=== PATIENT | male | born 1995 | race Caucasian/White ===

== ENCOUNTER 2022-11-30 16:47 | Emergency (ER) | payer MEDICARE, MEDICAID, SELFPAY ==
[2022-11-30 16:51] VITALS: BP 169/94; PULSE 59; RESP 20; TEMP 36.8; O2SAT 99; BMI 23.6
[2022-11-30 16:55] VITALS: PULSE 62; RESP 16
[2022-11-30 16:56] VITALS: BP 152/88; PULSE 87; RESP 17; O2SAT 98
[2022-11-30 16:57] VITALS: BP 152/88
[2022-11-30 17:00] VITALS: BP 150/97; PULSE 67; RESP 14; O2SAT 97
--- NOTE | 2022-11-30 17:01 | ECG_ITS ---
[facility] Test Date: 2022-11-30 Pat Name: ELISHA SANTANA Department: Room: - Gender: Male Human Resources Hr Representative: : 1995 Requested By: PEGGY LONG Order Number: [id number] Reading MD: PEGGY LONG Measurements Intervals Burns Rate: 66 P: 67 NH: 154 QRS: 77 QRSD: 92 T: 58 QT: 402 QTc: 416 Interpretive Statements 1100 Sinus rhythm 3114 Cannot rule out anterior myocardial infarction, age undetermined 9150 abnormal ECG No previous ECG available for comparison Electronically Signed On 12-01-2022 6:04:37 EDT by PEGGY LONG
--- NOTE | 2022-11-30 17:01 | XR_ITS ---
[address] [address] Patient Name: ELISHA SANTANA MRN: [id number] date: 1995 Sex: M Assigned Patient Location: ER Current Patient Location: ED.MAIN Accession/Order Number: [id number] Exam Date: 11/30/2022 17:00 Report Date: 11/30/2022 17:19 At the request of: ELAN URIOSTEGUI Procedure: XR chest 1V EXAM: XR chest 1V HISTORY: Chest pain. COMPARISON: None. TECHNIQUE: AP erect portable chest radiograph performed. FINDINGS: The trachea is midline. The heart size is normal. The cardiac mediastinal silhouette and hilar shadows are normal. The lung volumes are normal. The lung [place] are clear. There is no pneumothorax or osseous abnormality. IMPRESSION: Unremarkable AP erect portable chest radiograph. Electronically authenticated by: PATTI CAROLINA Date: 11/30/2022 17:19
--- NOTE | 2022-11-30 17:02 | ED.CHESTPAI1 ---
HPI - Chest Pain General Chief Complaint: Chest Pain Stated Complaint: CHEST PAIN Time Seen by Provider: 11/30/22 16:48 Source: patient Mode of arrival: walk-in Limitations: no limitations History of Present Illness HPI narrative: 26-year-old male presents for chest pain which she doesn't have right now. It's been intermittent for the last year. His had a baby for five days ago and the baby is still here until she weighs 4 pounds and then she can go home. No injury or trauma or fever. It's sharp and intermittent and doesn't radiate. No upper back pain or cough. Related Data Home Medications Medication Instructions Recorded Confirmed buprenorphine 8 mg-naloxone 2 mg 2 film sublingual DAILY 11/30/22 11/30/22 sublingual film Allergies Allergy/AdvReac Type Severity Reaction Status Date / Time No Known Drug Allergies Allergy Verified 11/30/22 16:54 Review of Systems ROS Narrative A ten point review of systems is negative except as noted above. PFSH PFSH Social History Smoking status: Heavy tobacco smoker Exam Narrative Exam Narrative: Nurses note and vital signs reviewed and patient is not hypoxic. General: The patient appears well and in no apparent distress. Patient is resting comfortably on cart. Skin: Warm, dry, no pallor noted. There is no rash noted. Head: Normocephalic, atraumatic Eye: Normal conjunctiva, no drainage Ears, Nose, Mouth, and Throat: oral mucosa is moist. Nares patent. Cardiovascular: Regular Rate and Rhythm; chest wall is not tender. No bruise rash or crepitus. Respiratory: Patient is in no distress, no accessory muscle use, lungs are clear to auscultation, no wheezing, rales or rhonchi Back: non-tender GI: soft and nontender Musculoskeletal: The patient has no evidence of calf tenderness, no pitting edema, symmetrical pulses noted bilaterally Neurological: A&O, normal speech Psychiatric: Cooperative Constitutional Vital Signs, click to edit/add: Last Vital Signs Temp 98.3 F 11/30/22 16:51 Pulse 86 11/30/22 17:25 Resp 20 11/30/22 17:25 BP 131/83 H 11/30/22 17:25 Pulse Ox 98 11/30/22 17:25 Course Vital Signs Vital signs: Vital Signs Temperature 98.3 F 11/30/22 16:51 Pulse Rate 59 L 11/30/22 16:51 Respiratory Rate 20 11/30/22 16:51 Blood Pressure 169/94 H 11/30/22 16:51 Pulse Oximetry 99 11/30/22 16:51 Temperature 98.3 F 11/30/22 16:51 Pulse Rate 86 11/30/22 17:25 Respiratory Rate 20 11/30/22 17:25 Blood Pressure 131/83 H 11/30/22 17:25 Pulse Oximetry 98 11/30/22 17:25 MDM - Chest Pain MDM Narrative Medical decision making narrative: EKG and chest x-ray both normal. He is reassured and discharged home. Treatment diagnosis and follow-up were discussed with the patient. Differential Diagnosis Differential diagnosis: Likely pneumothorax, atypical chest pain, costochondritis and chest pain ECG Data Attestation: I personally reviewed and interpreted this ECG as follows: (EKG on my interpretation shows normal sinus rhythm with no acute changes and a rate of 66) Discharge Plan Discharge Chief Complaint: Chest Pain Clinical Impression: Atypical chest pain Patient Disposition: Home, Self-Care Time of Disposition Decision: 17:29 Condition: Good Mode of Transportation: Private Vehicle Prescriptions / Home Meds: No Action buprenorphine-naloxone 8-2 mg film 2 film sublingual DAILY Instructions: Chest Pain (ED), Noncardiac Chest Pain (ED), Chest Wall Pain (ED) Stand Alone Forms: Portal Instructions Referrals: Physician,Non-Staff, MD [Primary Care Provider] - 1 week
[2022-11-30 17:25] VITALS: BP 131/83; PULSE 86; RESP 20; O2SAT 98
== END 2022-11-30 17:36 | disposition home or self-care (01) ==
PROVIDERS: Emergency Provider Emergency Medicine
DX: R07.89 Other chest pain (principal); F17.210 Nicotine dependence, cigarettes, uncomplicated
CPT/HCPCS: 71045; 93005; 99284

== ENCOUNTER 2024-06-07 09:45 | Emergency (ER) | payer MEDICARE, MEDICAID, SELFPAY ==
[2024-06-07 09:55] VITALS: BP 148/95; PULSE 68; TEMP 36.8; O2SAT 99; BMI 23.6
--- NOTE | 2024-06-07 09:58 | PC.NURSE ---
Patient reports urinary frequency and feeling full bladder
--- NOTE | 2024-06-07 10:23 | ED.MALEGU1 ---
HPI - Male Genitourinary General Chief complaint: Urogenital-Male Stated complaint: ABDOMINAL PAIN Time Seen by Provider: 06/07/24 09:58 Source: patient Mode of arrival: walk-in Limitations: no limitations History of Present Illness HPI Narrative: 28-year-old male presents for urinary symptoms. He is worried about having prostatitis. He says he has had issues with this before but his urologist dropped him because he missed an appointment. He has had no penile drainage and is not worried about an STD. He states his is and he has not had sex with anybody else. He is describing frequency of urination particularly at nighttime. Related Data Home Medications ?Medication ?Instructions ?Recorded ?Confirmed buprenorphine 8 mg-naloxone 2 mg 2 film sublingual DAILY 11/30/22 06/07/24 sublingual film Previous Rx's ?Medication ?Instructions ?Recorded ciprofloxacin HCl 500 mg tablet 500 mg PO Q12H #20 tabs 06/07/24 (Cipro) Allergies Allergy/AdvReac Type Severity Reaction Status Date / Time No Known Drug Allergies Allergy Verified 06/07/24 09:54 Review of Systems ROS Narrative A ten point review of systems is negative except as noted above. PFSH PFSH Social History Smoking status: Heavy tobacco smoker Little interest or pleasure in doing things: not at all Feeling down, depressed, or hopeless: not at all Exam Narrative Exam Narrative: Nurses note and vital signs reviewed and patient is not hypoxic. General: The patient appears well and in no apparent distress. Patient is resting comfortably on cart. Skin: Warm, dry, no pallor noted. There is no rash noted. Head: Normocephalic, atraumatic Eye: Normal conjunctiva, no drainage Ears, Nose, Mouth, and Throat: oral mucosa is moist. Nares patent. Cardiovascular: Regular Rate and Rhythm Respiratory: Patient is in no distress, no accessory muscle use, lungs are clear to auscultation, no wheezing, rales or rhonchi Back: non-tender GI: Soft and nontender, no distention : No inguinal adenopathy. No scrotal masses or tenderness or swelling. Musculoskeletal: The patient has no evidence of calf tenderness, no pitting edema, symmetrical pulses noted bilaterally Neurological: A&O, normal speech Psychiatric: Cooperative Constitutional Vital Signs, click to edit/add: Last Vital Signs Temp 98.3 F 06/07/24 09:55 Pulse 68 06/07/24 09:55 Resp 20 06/07/24 09:55 BP 148/95 H 06/07/24 09:55 Pulse Ox 99 06/07/24 09:55 O2 Del Method Room Air 06/07/24 09:55 Course Vital Signs Vital signs: Vital Signs Temperature 98.3 F 06/07/24 09:55 Pulse Rate 68 06/07/24 09:55 Respiratory Rate 20 06/07/24 09:55 Blood Pressure 148/95 H 06/07/24 09:55 Pulse Oximetry 99 06/07/24 09:55 Oxygen Delivery Method Room Air 06/07/24 09:55 Temperature 98.3 F 06/07/24 09:55 Pulse Rate 68 06/07/24 09:55 Respiratory Rate 20 06/07/24 09:55 Blood Pressure 148/95 H 06/07/24 09:55 Pulse Oximetry 99 06/07/24 09:55 Oxygen Delivery Method Room Air 06/07/24 09:55 MDM - Male Genitourinary MDM Narrative Medical decision making narrative: Urinalysis is negative. Gonorrhea and Chlamydia test are pending. He will be prescribed Cipro and was advised follow-up with the urologist. Treatment diagnosis and follow-up were discussed with the patient. Differential Diagnosis Differential diagnosis: Likely urinary tract infection, urethritis and prostatitis Lab Data Attestation: I reviewed the patient's lab results. Labs: Lab Results 06/07/24 Range/Units 10:27 Urine Color Lt. yellow (YELLOW) Urine Clarity Clear (CLEAR) Urine pH 7.0 (5.0-9.0) Ur Specific [place] 1.015 (1.005-1.025) Urine Protein Negative (NEG/TRACE) mg/dL Urine Glucose (UA) Negative (NEGATIVE) mg/dL Urine Ketones Negative (NEGATIVE) mg/dL Urine Occult Blood Negative (NEGATIVE) Urine Nitrite Negative (NEGATIVE) Urine Bilirubin Negative (NEGATIVE) Urine Urobilinogen 0.2 (0.2-1.0) EU/dL Ur Leukocyte Esterase Negative (NEGATIVE) Discharge Plan Discharge Chief Complaint: Urogenital-Male Clinical Impression: Urinary frequency Patient Disposition: Home, Self-Care Time of Disposition Decision: 10:59 Condition: Good Mode of Transportation: Private Vehicle Prescriptions / Home Meds: New ciprofloxacin HCl [Cipro] 500 mg tablet 500 mg PO Q12H Qty: 20 0RF No Action buprenorphine-naloxone 8-2 mg film 2 film sublingual DAILY Print Language: Pashto Instructions: Urinary Urgency and Frequency (DC) Referrals: Physician,Non-Staff, MD [Primary Care Provider] - 1 week
[2024-06-07 10:53] LABS: Bilirubin Urine NEGATIVE (NEGATIVE); Blood Urine NEGATIVE (NEGATIVE); Clarity Urine CLEAR (CLEAR); Color Urine LT. YELLOW (YELLOW); Glucose Urine UA NEGATIVE (NEGATIVE); Ketones Urine NEGATIVE (NEGATIVE); Leukocyte Esterase Urine NEGATIVE (NEGATIVE); Nitrite Urine NEGATIVE (NEGATIVE); Protein Urine NEGATIVE (NEG/TRACE); Specific Gravity Urine 1.015 (1.005-1.025); Urobilinogen Urine 0.2 EU/dL (0.2-1.0)
[2024-06-07 11:00] LABS: Bacteria Urine NONE SEEN #/HPF (NONE SEEN); Mucus Urine NONE SEEN (NONE SEEN); RBC Urine NONE SEEN #/HPF (0-2); Squamous Epithelial Cell Urine RARE #/LPF (NONE/RARE); WBC Urine NONE SEEN #/HPF (NONE SEEN)
[2024-06-08 22:07] LABS: Neisseria gonorrhoeae, NAA Negative (Negative)
== END 2024-06-07 11:06 | disposition home or self-care (01) ==
PROVIDERS: Emergency Provider Emergency Medicine
DX: R35.0 Frequency of micturition (principal); F17.200 Nicotine dependence, unspecified, uncomplicated
CPT/HCPCS: 81001; 87491; 87591; 99283

== ENCOUNTER 2024-12-08 18:20 | Emergency (ER) | payer MEDICARE, MEDICAID, SELFPAY ==
[2024-12-08 18:22] VITALS: BP 120/62; PULSE 58; TEMP 36.8; O2SAT 100; BMI 25.1
--- NOTE | 2024-12-08 18:28 | PC.NURSE ---
red raised rash to bilat lower legs, presents like bug bites and superficial abrasions. some have some scabs to the top and some appear to be opened by itching.
--- OUTSIDE RECORDS SUMMARY | 2024-12-08 18:35 | XMS_ITS | CCD ---
Author Organization [facility] Inform ion Partnership [facility] Care Team Providers Care Used Car Lot Attendant Name Role Phone JIMMIE MACKAY Admitting Unavailable JIMMIE MACKAY Attending Unavailable KYLAH BUCHANAN Primary Care Unavailable NONE, XXXX Primary Care Physician Unavailab Arnold Amos Attending Unavailable LEANA MARINO Admitting Unavailable LEANA MARINO Attending Unavailable Sue Khoury Attending Unavailable LEANA MARINO Attending Unavailable Arnold LEWIS Attending Unavailable LEANA MARINO Attending Unavailable LEANA MARINO Admitting Unavailable LEANA MARINO Attending Unavailable Medications Current Medications Medication Drug Class(es) Dates Sig (Normalized) Sig (Original) Amphetamine / Dextroamphetamine (1 source) Central Nervous System Stimulant Start: 07-31-2021 take 1 mg by mouth twice daily Adderall 30 mg oral tablet mg, tab(s), Oral, BID, Refill(s) 0 Start Date: 07/31/21 Status: Ordered amphetamine aspartate 7.5 mg / amphetamine sulfate 7.5 mg / dextroamphetamine saccharate 7.5 mg / dextroamphetamine sulfate 7.5 mg oral tablet (1 source) Central Nervous System Stimulant Start: 07-31-2021 take 1 mg by mouth twice daily Adderall 30 mg oral tablet mg, tab(s), Oral, BID, Refill(s) 0 Start Date: 07/31/21 Status: Ordered buprenorphine 8 mg / naloxone 2 mg sublingual film (6 sources) Partial Opioid Agonist, Opioid Antagonist Start: 07-31-2021 Suboxone 8 mg-2 mg sublingual film film, SubLingual, Daily, Refill(s) 0 Start Date: 07/31/21 Status: Ordered doxycycline hyclate 100 mg oral tablet (2 sources) Tetracycline-class Drug Start: 07-15-2023 End: 08-26-2023 take 1 tablet by mouth twice daily doxycycline hyclate 100 mg Tab 100 mg = 1 tab(s), Oral, BID, X 42 day(s), # 84 tab(s), Refills(s) 0, [id number], 178, cm, 07/15/23 10:42:00 EST, Height/Length Dosing, 70, kg, 07/15/23 10:42:00 EST, Weight Dosing Start Date: 07/15/23 Stop Date: 08/26/23 Status: Ordered naproxen 500 mg oral tablet (3 sources) Nonsteroidal Anti-inflammatory Drug Start: 07-15-2023 End: 07-29-2023 take 1 tablet by mouth twice daily at mealtime naproxen 500 mg Tab 500 mg = 1 tab(s), Oral, BID, Take with food., X 14 day(s), # 28 tab(s), Refills(s) 0, [id number], 178, cm, 07/15/23 10:42:00 EST, Height/Length Dosing, 70, kg, 07/15/23 10:42:00 EST, Weight Dosing Start Date: 07/15/23 Stop Date: 07/29/23 Status: Ordered Start: 05-22-2022 End: 06-05-2022 take 1 tablet by mouth twice daily at mealtime naproxen 500 mg Tab 500 mg = 1 tab(s), Oral, BID, Take with food., X 14 day(s), # 28 tab(s), Refills(s) 0, [id number], 178, cm, 05/22/22 11:36:00 EST, Height/Length Dosing, 70, kg, 05/22/22 11:36:00 EST, Weight Dosing Start Date: 05/22/22 Stop Date: 06/05/22 Status: Ordered sulfamethoxazole 800 mg / trimethoprim 160 mg oral tablet (1 source) Dihydrofolate Reductase Inhibitor Antibacterial, Sulfonamide Antimicrobial Start: 05-22-2022 End: 07-03-2022 Bactrim D.S. 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 Attention-deficit, conduct, and disruptive behavior disorders (7 sources) Adult attention deficit hyperactivity disorder 06-19-2021 Chronic Genitourinary symptoms and ill-defined conditions (20 sources) Retention of urine; Translations: [Retention of urine, unspecified] Onset: 09-25-2021 Episodic Hepatitis (7 sources) Viral hepatitis C 06-19-2021 Episodic Hyperplasia of prostate (13 sources) Benign prostatic hypertrophy with outflow obstruction 07-31-2021 Chronic Inflammatory conditions of male genital organs (10 sources) Prostatitis; Translations: [Inflammatory disease of prostate, unspecified] Onset: 09-25-2021 Episodic Other diseases of kidney and ureters (1 source) Urinary tract obstruction; Translations: [Other obstructive and reflux uropathy] Onset: 05-22-2022 Episodic Residual codes; unclassified (7 sources) At risk of sexually transmitted infection 06-19-2021 Episodic Substance-related disorders (20 sources) Opioid abuse; Translations: [Substance abuse] 06-19-2021 Chronic Comment on above: Added secondary to d ocumentation in Social History. Unclassified (6 sources) Finding of sensation of bladder 05-22-2022 Results Test Name Value Interpretation Reference Range Facil ity [facility] 02, 2023 ELISHA [place]ANA [address] [place] [address] : 1995 Dear Elisha, You missed your scheduled appointment on 11/02/23 at 12:45pm with Dr Sue Khoury MD, with [facility]. Please note our appointment slots fill quickly. When you fail to cancel or reschedule an appointment the office is unable to fill the appointment slot that was reserved for you. In the future, we ask that you call 24 hours in advance to cancel your appointment. Our current reminder system gives you the opportunity to cancel by responding to our reminder text, phone call or email. We did try to call you and reschedule but we were unable to leave a message on your phone. Please call [phone] option 3 to reschedule. Our goal is to provide convenient and quality care to all of our patients. We appreciate your consideration regarding any future cancellations. Sincerely, [facility] Provider Letteron 09-15-2023 Provider Letter September 15, 2023 [place] [address] : 1995 Dear Elisha , We have been trying to reach you with no success. We have a message for you. Please call our office upon receiving this letter. Also, at the time of your call, please provide us with your current information. Thank you for your prompt attention to this matter. Sincerely, [facility] [address], [place] [address] [facility] Chlam/GC/Trich,NAAon 024 C. trachomatis rRNA STEPHANIE+probe Ql (Unsp spec) Negative Invalid Interpretation Code Negative [facility] Comment on above: Performed By: #### 1 [id number] #### [facility] [address] [place] [address] N. gonorrhoeae rRNA STEPHANIE+probe Ql (Unsp spec) Negative Invalid Interpretation Code Negative [facility] Comment on above: Performed By: #### 1 [id number] #### [facility] [address] [place] [address] T. vaginalis rRNA STEPHANIE+probe Ql (Unsp spec) Negative Invalid Interpretation Code Negative [facility] Comment on above: Result Comment: Perf ormed at: =G [facility] [address] [place] [id number] MD Bobby Romo Performed By: #### 1 [id number] #### [facility] [address] [place] [address] Ambulatory Visit Summaryon 0 07-15-2023 Ambulatory Visit Summary ELISHA SANTANA :1995 Visit Date:07/15/2023 Ambulatory Visit Instructions Your Diagnosis Prostatitis Your Care Team Attending Physician - LEANA MARINO PA-C Primary Care Physician - NONE, XXXX This Is Your Medications List Contact prescribing physician if questions or concerns buprenorphine-naloxo ne (Suboxone 8 mg-2 mg sublingual film) Discharge Vitals Height 178 cm Height 70 in Weight 70.0 kg Weight 154 lb BMI 22.09 What to do next You Need to Schedule the Following Appointments Follow Up with LEANA MARINO PA-C, ANA When: Where: [address] [facility] [place] [address] Medications What How Much When Instructions Unchanged buprenorphine-naloxo ne (Suboxone 8 mg-2 mg sublingual film) Every day Contact prescribing physician if questions or concerns Allergies No Known Allergies Problems Ongoing - Any problem that you are currently receiving treatment for. Adult ADHD Anxiety and depression BPH with obstruction/lower urinary tract symptoms BPH with urinary obstruction Feeling of incomplete bladder emptying Hepatitis C Incomplete bladder emptying Nocturia Opioid abuse Possible exposure to STD Prostatitis Smoker Substance abuse Urinary frequency Urinary hesitancy Urinary urgency Patient Survey You may receive a survey via text or e-mail asking about your office visit. Please share your experience with us by completing your survey. We appreciate your feedback and thank you for choosing us for your care. [facility] Patient Educationon 07-15-19 Patient Education Infectious Disease Prostatitis Prostatitis is swelling or inflammation of the prostate gland, also called the prostate. This gland is about 1.5 inches wide and 1 inch high, and it is involved in making semen. The prostate is located below a man's bladder, in front of the rectum. There are four types of prostatitis: ? Chronic prostatitis (CP), also called chronic pelvic pain syndrome (CPPS). This is the most common type of prostatitis. It is associated with increased muscle tone in the area between the hip bones (pelvic area), around the prostate. This type is also known as a pelvic floor disorder. ? Chronic bacterial prostatitis. This type usually results from an acute bacterial infection in the prostate gland that keeps coming back or has not been treated properly. The symptoms are less severe than those caused by acute bacterial prostatitis, which lasts a shorter time. ? Asymptomatic inflammatory prostatitis. This type does not have symptoms and does not need treatment. This is diagnosed when tests are done for other disorders of the urinary tract or reproductive tract. ? Acute bacterial prostatitis. This type starts quickly and results from an acute bacterial infection in the prostate gland. It is usually associated with a bladder infection, high fever, and chills. This is the least common type of prostatitis. What are the causes? Bacterial prostatitis is caused by an infection from bacteria. Chronic nonbacterial prostatitis may be caused by: ? Factors related to the nervous system. This system includes thebrain, spinal cord, and nerves. ? An autoimmune response. This happens when the body's disease-fighting system attacks healthy tissue in the body by mistake. ? Psychological factors. These have to do with how the mind works. The causes of the other types of prostatitis are usually not known. What are the signs or symptoms? Symptoms of this condition depend on the type of prostatitis you have. Acute bacterial prostatitis Symptoms may include: ? Pain or burning during urination. ? Frequent and sudden urges to urinate. ? Trouble starting to urinate. ? Fever. ? Chills. ? Pain in your muscles or joints, lower back, or lower abdomen. Other types of prostatitis Symptoms may include: ? Sudden urges to urinate, or urinating often. ? Trouble starting to urinate. ? Weak urine stream. ? Dribbling after urination. ? Discharge coming from the penis. ? Pain in the testicles, the penis, or the tip of the penis. ? Pain in the area in front of the rectum and below the scrotum (perineum). ? Pain when ejaculating. How is this diagnosed? This condition may be diagnosed based on: ? A physical and medical exam. ? A digital rectal exam. For this, the health care provider may use a finger to feel the prostate. ? A urine test to check for bacteria. ? A semen sample or blood tests. ? Ultrasound. ? Urodynamic tests to check how your body handles urine. ? Cystoscopy to look inside your bladder or inside the part of your body that drains urine from the bladder (urethra). How is this treated? Treatment for this condition depends on the type of prostatitis. Treatment may involve: ? Medicines to relieve pain or inflammation, or to help relax your muscles. ? Physical therapy. ? Heat therapy. ? Biofeedback. These techniques help you control certain body functions. ? Relaxation exercises. ? Antibiotic medicine, if your condition is caused by bacteria. ? Sitz baths. These warm water baths help to relax your pelvic floor muscles, which helps to relieve pressure on the prostate. Follow these instructions at home: Medicines ? Take rfac-[id number]-[id number] and prescription medicines only as told by your health care provider. ? If you were prescribed an antibiotic medicine, take it as told by your health care provider. Do not stop using the antibiotic even if you start to feel better. Managing pain and swelling ? Take sitz baths as directed by your health care provider. For a sitz bath, sit in warm water that is deep enough to cover your hips and buttocks. ? If directed, apply heat to the affected area as often as told by your health care provider. Use the heat source that your health care provider recommends, such as a moist heat pack or a heating pad. ? Place a towel between your skin and the heat source. ? Leave the heat on for 20?30 minutes. ? Remove the heat if your skin turns bright red. This is especially important if you are unable to feel pain, heat, or cold. You may have a greater risk of getting burned. General instructions ? Do exercises as told by your health care provider, if you were prescribed physical therapy, biofeedback, or relaxation exercises. ? Keep all follow-up visits as told by your health care provider. This is important. Where to find more information ? [employer] [place] [employer] and [employer]estive and Kidney Diseases: (more content not included)... Normal [facility] Office/Clinic Noteon 07-15-2023 Urology Office/Clinic Note Chief Complaint Prostatitis symptoms HPI Staff Pt is here today due to prostatitis symptoms. Pt would like refill of Bactrim medication. PVR today 18ml. Previous DX: BPH w/LUTS, incomplete bladder emptying, nocturia, prostatitis, urinary frequency, urinary hesitancy, urinary urgency. Dysuria: some burning ending stream Incomplete bladder emptying: denies Hematuria: denies visible blood today, noticed blood a couple of months ago after intercourse Frequency: 10x a day Urgency: denies Nocturia: once a night Stream: hesitant stream, start stop stream Leaking: denies Post void dripping: sometimes Wearing pads/ Depends: denies Urge incontinence: denies Stress incontinence: denies Incontinence without Sensory Awareness: denies Abdominal pain: denies Flank pain: denies Sexual complaints: denies History of Present Illness staff HPI reviewed and agree. Tests Reviewed: Reviewed UA. Review of Systems PHQ Score Initial Depression Screen Score: 0 SCORE no fever, chills, malaise, myalgia. no rash/lesions. no chest pain, palpitations, or SOB. no abdominal pain, nausea, vomiting. no unilateral calf swelling, redness, pain Physical Exam Vitals & Measurements HT: 70 in HT: 178 cm WT: 70.0 kg WT: 154 lb BMI: 22.09 General: nontoxic, NAD Mouth: moist mucosa Lungs: normal respiratory effort Cardio: regular rate, good distal perfusion Abdomen: nondistended, no suprapubic distention or tenderness, no CVA tenderness Neurologic: Grossly normal Skin: No rashes or suspicious lesions Assessment/Plan 1. Prostatitis (N41.9: Inflammatory disease of prostate, unspecified) UA today negative for blood and infection. PVR 18 cc. Pt presents with similar sx as to the last time he had prostatitis in 04/2022. Was treated with Bactrim DS x 6 weeks recently, noticed improvement but not resolution of sx. Says last time he had prostatitis it required 2 rounds abx. discussed possible resistance to this Bactrim since he's had this several times now. Pt lifts heavy weights daily, not a candidate for fluoroquinolones. -Start Doxycycline 100 mg bid x 6 weeks. Rx sent to [facility]. -Start Naproxen 500 mg bid x 2 weeks. Take with food. Rx sent to [facility]. -Will send urine for GC-CT testing. call if abnl. Pt knows to call if his sx are not improved after med courses below otherwise f/u PRN. Follow-up With When Contact Information NED LEVINE, LEANA Barnes, URL [address] [place] [address] Additional Instructions: PRN Patient Education Prostatitis Documentation recorded by the scribvalentino Andre accurately reflects the services(s) I performed and decisions made by me. Authenticated by Leana Marino PA-C on 07/15/2023 16:08:04. I, Minna Andre, personally scribed for YUMIKO Osullivan on 07/15/2023 11:58:40. . Problem List/Past Medical History Ongoing Adult ADHD Anxiety and depression BPH with obstruction/lower urinary tract symptoms BPH with urinary obstruction Feeling of incomplete bladder emptying Hepatitis C Incomplete bladder emptying Nocturia Opioid abuse Possible exposure to STD Prostatitis Smoker Substance abuse Urinary frequency Urinary hesitancy Urinary urgency Historical No qualifying data Medications Suboxone 8 mg-2 mg sublingual film, SubLingual, Daily Allergies No Known Allergies Social History Substance Abuse Current, Marijuana, 06/19/2021 Tobacco 10 or more cigarettes (1/2 pack or more)/day in last 30 days, Smoker, current status unknown Tobacco Use:. Never Smokeless Tobacco Use:. Cigarettes, Yes, 07/15/2023 Family History Alcoholism: Mother and Father. Arthritis: Mother. Diabetes mellitus type 2: Sister. Drug addiction: Mother and Father. High blood pressure: Mother. High cholesterol: Mother. Kidney disease: Mother. Primary malignant neoplasm of lung: Mother. Stroke: Mother. Lab Results Ambulatory Point of Care Results Bilirubin Urine Dipstick: 1+ Small (07/15/23 10:37:00) Blood Urine Dipstick: Trace-intact (07/15/23 10:37:00) Glucose Urine Dipstick: Negative (07/15/23 10:37:00) Ketones Urine Dipstick: Negative (07/15/23 10:37:00) Leukocytes Urine Dipstick: Negative (07/15/23 10:37:00) Nitrite Urine Dipstick: Negative (07/15/23 10:37:00) Protein Urine Dipstick: Negative (07/15/23 10:37:00) Specific [place] Urine Dipstick: 1.025 (07/15/23 10:37:00) Urine Appearance Urine Dipstick: Clear (07/15/23 10:37:00) Urine Color Urine Dipstick: Dark yellow (07/15/23 10:37:00) Urobilinogen Urine Dipstick: Normal 0.2-1 EU/dl (07/15/23 10:37:00) pH Urine Dipstick: 6 (07/15/23 10:37:00) Normal [facility] Comment on above: Result Comment: Elec tronically Signed By: LEANA MARINO PA-C\.br\Date and Time Signed: 07/15/23 16:08 EST\.br\Electronically Co-Signed By: Minna Andre\.br\Date and Time Co-Signed: 07/15/23 11:59 EST Chlam/GC/Trich,NAAon 024 C. trachomatis rRNA STEPHANIE+probe Ql (Unsp spec) Negative Invalid Interpretation Code Negative [facility] Comment on above: Performed By: #### 1 [id number] #### [facility] [address] [place] [address] N. gonorrhoeae rRNA STEPHANIE+probe Ql (Unsp spec) Negative Invalid Interpretation Code Negative [facility] Comment on above: Performed By: #### 1 [id number] #### [facility] [address] [place] [address] T. vaginalis rRNA STEPHANIE+probe Ql (Unsp spec) Negative Invalid Interpretation Code Negative [facility] Comment on above: Result Comment: Perf ormed at: =G [address] [id number] MD Bobby Romo Performed By: #### 1 [id number] #### [facility] [address] [place] [address] Ambulatory Visit Summaryon 0 05-28-2023 Ambulatory Visit Summary ELISHA SANTANA :1995 Visit Date:05/26/2023 Ambulatory Visit Instructions Your Diagnosis BPH with obstruction/lower urinary tract symptoms Tests Performed Urnls Dip Stick Auto w/o Microscopy POC 37200 Your Care Team Attending Physician - LEANA MARINO PA-C Primary Care Physician - LEANA MARINO PA-C This Is Your Medications List amphetamine-dextroam phetamine (Adderall 30 mg oral tablet) buprenorphine-naloxo ne (Suboxone 8 mg-2 mg sublingual film) Medications What How Much When Instructions Unchanged amphetamine-dextroam phetamine (Adderall 30 mg oral tablet) 2 times a day Unchanged buprenorphine-naloxo ne (Suboxone 8 mg-2 mg sublingual film) Every day Test Results Urnls Dip Stick Auto w/o Microscopy POC 92258 (05/26/2023) Bilirubin Urine Dipstick - Negative Blood Urine Dipstick - Negative Glucose Urine Dipstick - Negative Ketones Urine Dipstick - Negative Leukocytes Urine Dipstick - Negative Nitrite Urine Dipstick - Negative Protein Urine Dipstick - Negative Specific [place] Urine Dipstick - 1.020 Urine Appearance Urine Dipstick - Clear Urine Color Urine Dipstick - Dark yellow Urobilinogen Urine Dipstick - Normal 0.2-1 EU/dl pH Urine Dipstick - 7 Allergies No Known Allergies Problems Ongoing - Any problem that you are currently receiving treatment for. Adult ADHD Anxiety and depression BPH with obstruction/lower urinary tract symptoms BPH with urinary obstruction Feeling of incomplete bladder emptying Hepatitis C Incomplete bladder emptying Nocturia Opioid abuse Possible exposure to STD Prostatitis Smoker Substance abuse Urinary frequency Urinary hesitancy Urinary urgency Patient Survey You may receive a survey via text or e-mail asking about your office visit. Please share your experience with us by completing your survey. We appreciate your feedback and thank you for choosing us for your care. Normal [facility] Vital Signs Date Time Vital Sign Value Performing Clinician Lala carreon 05-22-2022 11:34-0500 Blood Pressure Location LEANA MARINO [facility] 05-22-2022 11:34-0500 Diastolic blood pressure 73 mm[Hg] LEANA MARINO [facility] 05-22-2022 11:34-0500 Heart rate 57 /min LEANA MARINO [facility] 05-22-2022 11:34-0500 Systolic blood pressure 127 mm[Hg] LEANA MARINO [facility] Encounters Encounter Date Encounter Type Care Provider Facility Start: 03-02-2024 End: 03-02-2024 ambulatory Arnoldsaul LEWIS Facility:[facility] Start: 03-02-2024 End: 03-02-2024 Patient encounter procedure Arnold LEWIS [facility] Start: 11-02-2023 End: 11-02-2023 ambulatory Sue Khoury Facility: [place] Start: 11-02-2023 End: 11-02-2023 Patient encounter procedure Sue ReeseForrest Peng [facility] Start: 10-16-2023 End: 10-16-2023 ambulatory Arnoldsaul LEWIS Facility: [place] Start: 10-16-2023 End: 10-16-2023 Patient encounter procedure Arnold LEWIS [facility] Start: 07-15-2023 End: 07-15-2023 ambulatory LEANA Branes NED Facility[facility] Start: 07-15-2023 End: 07-15-2023 Lab Drop off LEANA Valentino NED [facility] Start: 07-15-2023 End: 07-15-2023 ambulatory LEANA E NED Facility:[facility] Start: 07-15-2023 End: 07-15-2023 Patient encounter procedure LEANA E NED [facility] Start: 05-26-2023 End: 05-26-2023 ambulatory LEANA E NED Facility:[facility] Start: 05-22-2022 End: 05-22-2022 Patient encounter procedure LEANA E NED [facility] Start: 09-25-2021 End: 09-25-2021 Patient encounter procedure LEANA MARINO [facility] Start: 02-17-2021 ambulatory JIMMIEJAYY [place] Chiang y:H1 Payers Date Payer Category Payer Medicare [id number] 2020 Medicaid [id number] 1995 Unknown [id number] 2.16.84 [id number] 1995 Unknown [id number] 2.16.8 [id number] 1995 Unknown [id number] 2.16.8 [id number] 1995 Unknown [id number] 2.16.8 [id number] 1995 Unknown [id number] 2.16.8 [id number] 1995 Unknown [id number] 2.16.8 [id number] 1995 Unknown [id number] 2.16.8 [id number] 1995 Unknown [id number] 2.16.8 [id number] 1961 Self-pay Social History Date Type Detail Facility Start: 07-31-2021 End: 07-15-2023 Tobacco smoking status Heavy tobacco smoker (finding) [facility] Sex Assigned At Male [facility] [facility] Tobacco smoking status Smoker (finding) [facility] Tobacco smoking status Never [facility] Medical Equipment Procedure Code Equipment Code Equipment Origin al Text Equipment Identifier Dates film, SubLingual , Daily, Refill(s) 0 Start: 07-31-2021 Functional Status Date Assessment Result Facility 07-15-2023 Functional Status N/A [facility] 05-22-2022 Functional Status N/A [facility] Hospital Discharge instructions 10-16-2023 Note Date & Type Note Facility 10-16-2023 Hospital Discharg e instructions Follow Up Care 10/16/2023 11:21:46 With:Peng PEREZ, ANA Damico, URO Address: When: Unknown [facility] Hospital Discharge instructions 10-07-2023 Note Date & Type Note Facility 10-07-2023 Hospital Discharg e instructions Follow Up Care 10/07/2023 10:21:41 With:JOSHUA PEREZ, Arnold Thurston, URL Address: [facility] [address], [place] [id number]- [phone] When: Unknown [facility] Evaluation + Plan note 07-15-2023 Laboratory Note Date & Type Note Facility 07-15-2023 Evaluation + Plan note Diagnostic Tests PendingChlam/GC/Trich,STEPHANIE 07/15/23 Future Scheduled TestsChlamydia trachomatis, STEPHANIE 07/31/22Neisseria gonorrhoeae, STEPHANIE 07/31/22 [facility] Hospital Discharge instructions 07-15-2023 Note Date & Type Note Facility 07-15-2023 Hospital Discharg e instructions Patient Education 07/15/2023 11:33:02 Prostatitis Prostatitis Prostatitis is swelling or inflammation of the prostate gland, also called the prostate. This gland is about 1.5 inches wide and 1 inch high, and it is involved in making semen. The prostate is located below a man's bladder, in front of the rectum. There are four types of prostatitis: Chronic prostatitis (CP), also called chronic pelvic pain syndrome (CPPS). This is the most common type of prostatitis. It is associated with increased muscle tone in the area between the hip bones (pelvic area), around the prostate. This type is also known as a pelvic floor disorder. Chronic bacterial prostatitis. This type usually results from an acute bacterial infection in the prostate gland that keeps coming back or has not been treated properly. The symptoms are less severe than those caused by acute bacterial prostatitis, which lasts a shorter time. Asymptomatic inflammatory prostatitis. This type does not have symptoms and does not need treatment. This is diagnosed when tests are done for other disorders of the urinary tract or reproductive tract. Acute bacterial prostatitis. This type starts quickly and results from an acute bacterial infection in the prostate gland. It is usually associated with a bladder infection, high fever, and chills. This is the least common type of prostatitis. What are the causes? Bacterial prostatitis is caused by an infection from bacteria. Chronic nonbacterial prostatitis may be caused by: Factors related to the nervous system. This system includes thebrain, spinal cord, and nerves. An autoimmune response. This happens when the body's disease-fighting system attacks healthy tissue in the body by mistake. Psychological factors. These have to do with how the mind works. The causes of the other types of prostatitis are usually not known. What are the signs or symptoms? Symptoms of this condition depend on the type of prostatitis you have. Acute bacterial prostatitis Symptoms may include: Pain or burning during urination. Frequent and sudden urges to urinate. Trouble starting to urinate. Fever. Chills. Pain in your muscles or joints, lower back, or lower abdomen. Other types of prostatitis Symptoms may include: Sudden urges to urinate, or urinating often. Trouble starting to urinate. Weak urine stream. Dribbling after urination. Discharge coming from the penis. Pain in the testicles, the penis, or the tip of the penis. Pain in the area in front of the rectum and below the scrotum (perineum). Pain when ejaculating. How is this diagnosed? This condition may be diagnosed based on: A physical and medical exam. A digital rectal exam. For this, the health care provider may use a finger to feel the prostate. A urine test to check for bacteria. A semen sample or blood tests. Ultrasound. Urodynamic tests to check how your body handles urine. Cystoscopy to look inside your bladder or inside the part of your body that drains urine from the bladder (urethra). How is this treated? Treatment for this condition depends on the type of prostatitis. Treatment may involve: Medicines to relieve pain or inflammation, or to help relax your muscles. Physical therapy. Heat therapy. Biofeedback. These techniques help you control certain body functions. Relaxation exercises. Antibiotic medicine, if your condition is caused by bacteria. Sitz baths. These warm water baths help to relax your pelvic floor muscles, which helps to relieve pressure on the prostate. Follow these instructions at home: Medicines Take aggc-otr-rlwyxbv and prescription medicines only as told by your health care provider. If you were prescribed an antibiotic medicine, take it as told by your health care provider. Do not stop using the antibiotic even if you start to feel better. Managing pain and swelling Take sitz baths as directed by your health care provider. For a sitz bath, sit in warm water that is deep enough to cover your hips and buttocks. If directed, apply heat to the affected area as often as told by your health care provider. Use the heat source that your health care provider recommends, such as a moist heat pack or a heating pad. ?Place a towel between your skin and the heat source. ?Leave the heat on for 20 30 minutes. ?Remove the heat if your skin turns bright red. This is especially important if you are unable to feel pain, heat, or cold. You may have a greater risk of getting burned. General instructions Do exercises as told by your health care provider, if you were prescribed physical therapy, biofeedback, or relaxation exercises. Keep all follow-up visits as told by your health care provider. This is important. Where to find more information [employer] [place] of [employer] and Digestive and Kidney Diseases: https://www.niddk.nih.gov Contact a health care provider if: Your symptoms get worse. You have a fever. Get help right away if: You have chills. You feel light-headed or feel like you may faint. You cannot urinate. You have blood or blood clots in your urine. Summary Prostatitis is swelling or inflammation of the prostate gland. Treatment for this condition depends on the type of prostatitis. Take qtwz-rhg-jjtntcu and prescription medicines only as told by your health care provider. Get help right away of you have chills, feel light-headed, feel like you may faint, cannot urinate, or have blood or blood clots in your urine. This information is not intended to replace advice given to you by your health care provider. Make sure you discuss any questions you have with your health care provider. Document Revised: 06/15/2020 Document Reviewed: 06/15/2020 [employer] Patient Education 2022 [employer] Follow Up Care 07/02/2023 11:55:36 With:NED LEVINE, LEANA Barnes, URL Address: [address] [place] [place] [address] When: Unknown [facility] Evaluation + Plan note 07-31-2022 Laboratory Note Date & Type Note Facility 07-31-2022 Evaluation + Plan note Future Scheduled TestsChlamydia trachomatis, STEPHANIE 07/31/22Neisseria gonorrhoeae, STEPHANIE 07/31/22 [facility] Hospital Discharge instructions 05-22-2022 Note Date & Type Note Facility 05-22-2022 Hospital Discharg e instructions Patient Education 05/22/2022 12:09:03 Prostatitis Prostatitis Prostatitis is swelling or inflammation of the prostate gland. The prostate is a walnut-sized gland that is involved in the production of semen. It is located below a man's bladder, in front of the rectum. There are four types of prostatitis: Chronic nonbacterial prostatitis. This is the most common type of prostatitis. It may be associated with a viral infection or autoimmune disorder. Acute bacterial prostatitis. This is the least common type of prostatitis. It starts quickly and is usually associated with a bladder infection, high fever, and shaking chills. It can occur at any age. Chronic bacterial prostatitis. This type usually results from acute bacterial prostatitis that happens repeatedly (is recurrent) or has not been treated properly. It can occur in men of any age but is most common among middle-aged men whose prostate has begun to get larger. The symptoms are not as severe as symptoms caused by acute bacterial prostatitis. Prostatodynia or chronic pelvic pain syndrome (CPPS). This type is also called pelvic floor disorder. It is associated with increased muscular tone in the pelvis surrounding the prostate. What are the causes? Bacterial prostatitis is caused by infection from bacteria. Chronic nonbacterial prostatitis may be caused by: Urinary tract infections (UTIs). Nerve damage. A response by the body s disease-fighting system (autoimmune response). Chemicals in the urine. The causes of the other types of prostatitis are usually not known. What are the signs or symptoms? Symptoms of this condition vary depending upon the type of prostatitis. If you have acute bacterial prostatitis, you may experience: Urinary symptoms, such as: ?Painful urination. ?Burning during urination. ?Frequent and sudden urges to urinate. ?Inability to start urinating. ?A weak or interrupted stream of urine. Vomiting. Nausea. Fever. Chills. Inability to empty the bladder completely. Pain in the: ?Muscles or joints. ?Lower back. ?Lower abdomen. If you have any of the other types of prostatitis, you may experience: Urinary symptoms, such as: ?Sudden urges to urinate. ?Frequent urination. ?Difficulty starting urination. ?Weak urine stream. ?Dribbling after urination. Discharge from the urethra. The urethra is a tube that opens at the end of the penis. Pain in the: ?Testicles. ?Penis or tip of the penis. ?Rectum. ?Area in front of the rectum and below the scrotum (perineum). Problems with sexual function. Painful ejaculation. Bloody semen. How is this diagnosed? This condition may be diagnosed based on: A physical and medical exam. Your symptoms. A urine test to check for bacteria. An exam in which a health care provider uses a finger to feel the prostate (digital rectal exam). A test of a sample of semen. Blood tests. Ultrasound. Removal of prostate tissue to be examined under a microscope (biopsy). Tests to check how your body handles urine (urodynamic tests). A test to look inside your bladder or urethra (cystoscopy). How is this treated? Treatment for this condition depends on the type of prostatitis. Treatment may involve: Medicines to relieve pain or inflammation. Medicines to help relax your muscles. Physical therapy. Heat therapy. Techniques to help you control certain body functions (biofeedback). Relaxation exercises. Antibiotic medicine, if your condition is caused by bacteria. Warm water baths (sitz baths). Sitz baths help with relaxing your pelvic floor muscles, which helps to relieve pressure on the prostate. Follow these instructions at home: Take qmwl-pzu-rdmzaqk and prescription medicines only as told by your health care provider. If you were prescribed an antibiotic, take it as told by your health care provider. Do not stop taking the antibiotic even if you start to feel better. If physical therapy, biofeedback, or relaxation exercises were prescribed, do exercises as instructed. Take sitz baths as directed by your health care provider. For a sitz bath, sit in warm water that is deep enough to cover your hips and buttocks. Keep all follow-up visits as told by your health care provider. This is important. Contact a health care provider if: Your symptoms get worse. You have a fever. Get help right away if: You have chills. You feel nauseous. You vomit. You feel light-headed or feel like you are going to faint. You are unable to urinate. You have blood or blood clots in your urine. This information is not intended to replace advice given to you by your health care provider. Make sure you discuss any questions you have with your health care provider. Document Released: 05/08/2001 Document Revised: 07/24/2018 Document Reviewed: 01/29/2017 [employer] Patient Education 2020 [employer] Follow Up Care 05/14/2022 10:03:28 With:LEANA MARINO PA-C, URL Address: [address] [place] [address] [place] [address] When: only if needed Comments:PRN [facility] Evaluation + Plan note Note Date & Type Note Facility Evaluation + Plan note No data available for this section [facility] Evaluation + Plan note Note Date & Type Note Facility Evaluation + Plan note Future Appointments Appointment Date:11/02/2023 12:45:00 PM Scheduled Provider:Peng PEREZ, Sue Hunt Location:[facility] Appointment Type:URO Office Visit [facility] Hospital Discharge instructions Note Date & Type Note Facility Hospital Discharge instructions No data available for this section [facility] Progress note Note Date & Type Note Facility Progress note No data available for this section [facility] Summary Purpose Family History No Family History Records Found No data available for this section No data available for this section No data available for this section No data available for this section No Family History Records Found No data available for this section Advance Directives No Advanced Directives Records FoundNo Advanced Directives Records Found Additional Source Comments (unrecognized sect ion and content) No Status Records FoundNo Status Records Found INFORMATION SOURCE (unrecogn ized section and content) DATE CREATED AUTHOR 11/12/2021 [facility] DATE CREATED AUTHOR AUTHOR'S ORGANIZ ATION 03/04/2024 [facility] FOR RECORDS PERTAINING TO PATIENTS WHO ARE OR HAVE BEEN ENROLLED IN A CHEMICAL DEPENDENCY/SUBSTANCEABUSE PROGRAM, SOME INFORMATION MAY BE OMITTED. This clinical summary was aggregated from multiple sources. Caution should be exercised in using it in the provision of clinical care. This summary normalizes information from multiple sources, and as a consequence, information in this document may materially change the coding, format and clinical context of patient data. In addition, data may be omitted in some cases. CLINICAL DECISIONS SHOULD BE BASED ON THE PRIMARY CLINICAL RECORDS. [facility] [employer] [facility]. provides no warranty or guarantee of the accuracy or completeness of information in this document.
--- NOTE | 2024-12-08 18:49 | ED_ITS ---
HPI HPI - General Adult General Chief complaint: Skin/Abscess/Foreign Body Stated complaint: RASH ON BOTH LEGS Time Seen by Provider: 12/08/24 18:27 Source: patient Mode of arrival: walk-in History of Present Illness HPI narrative: The patient is a 28-year-old male who presents to the emergency department today for evaluation of concerns for a pruritic rash to his legs after cutting grass today. Overall since coming to the ER he does endorse the rash is resolving on its own. He states he did not take any antihistamines including Benadryl or applied any topical corticosteroids. Related Data Home Medications ?Medication ?Instructions ?Recorded ?Confirmed buprenorphine 8 mg-naloxone 2 mg 2 film sublingual BAILEY LY 11/30/22 06/07/24 sublingual film Previous Rx's ?Medication ?Instructions ?Recorded ciprofloxacin HCl 500 mg tablet 500 mg PO Q12H #20 tab s 06/07/24 (Cipro) Allergies Allergy/AdvReac Type Severity Reaction Status Date / Time No Known Drug Allergies Allergy Verified 06/07/24 09:54 Opioid HPI Opioid Management Most Recent Opioid Data: Last Pain Scale 0 11/30/22, 16:59 Review of Systems ROS Status of ROS 10 or more systems reviewed and unremark able except as noted in history and below PFSH PFSH Social History Smoking status: Heavy tobacco smoker Little interest or pleasure in doing things: not at all Feeling down, depressed, or hopeless: not at all Exam Narrative Exam Narrative: Constituational: Awake/ alert, no apparent distress, well hydrated HENMT: normocephalic, external ears normal, moist oral mucous membranes and oropharynx normal Eyes: EOMI and conjunctivae normal Neck: ROM intact Chest: inspection of chest normal Respiratory: Normal respiratory effort Back: nontender MSK: ROM intact, +NVI Skin: + Faint erythematic circular rash to B/L LE with few scabbed lesions. No petechiae or purpura Neuro: no focal deficits Psych: mental status grossly normal Constitutional Vital Signs, click to edit/add: Last Vital Signs Temp 98.3 F 12/08/24 18:22 Pulse 58 L 12/08/24 18:22 Resp 16 12/08/24 18:22 BP 120/62 12/08/24 18:22 Pulse Ox 100 12/08/24 18:22 O2 Del Method Room Air 12/08/24 18:22 Course Vital Signs Vital signs: Vital Signs Temperature 98.3 F 12/08/24 18:22 Pulse Rate 58 L 12/08/24 18:22 Respiratory Rate 16 12/08/24 18:22 Blood Pressure 120/62 12/08/24 18:22 Pulse Oximetry 100 12/08/24 18:22 Oxygen Delivery Method Room Air 12/08/24 18:22 Temperature 98.3 F 12/08/24 18:22 Pulse Rate 58 L 12/08/24 18:22 Respiratory Rate 16 12/08/24 18:22 Blood Pressure 120/62 12/08/24 18:22 Pulse Oximetry 100 12/08/24 18:22 Oxygen Delivery Method Room Air 12/08/24 18:22 Medical Decision Making MDM Narrative Medical decision making narrative: The patient is a well-appearing 28-year-old male who presented to the emergency department today for evaluation concerns for a pruritic rash to his lower legs after mowing lawn earlier today. Initial examination patient with clinical evidence consistent with nonspecific erythematic type rash, appears allergic in etiology. No evidence of cellulitis or abscess. Additionally no concerning neurovascular or motor findings on exam. Findings with the patient including recommendations for supportive care. Patient offered Benadryl in the ER however when she had rash was resolving on its own and would prefer to take Benadryl at home if he continue to need it. Discussed signs and symptoms of any worsening condition and when to consider reevaluation by the emergency department. Patient verbalized an understanding of this and is agreeable to plan to be discharged home. Medical Records Medical records reviewed: Yes I reviewed the patient's medical records Discharge Plan Discharge Chief Complaint: Skin/Abscess/Foreign Body Clinical Impression: Rash Patient Disposition: Home, Self-Care Prescriptions / Home Meds: No Action buprenorphine-naloxone 8-2 mg film 2 film sublingual DAILY ciprofloxacin HCl [Cipro] 500 mg tablet 500 mg PO Q12H Qty: 20 0RF Print Language: [place] Instructions: Acute Rash (ED) Additional Instructions: May take Benadryl as needed and use dusv-jkg-quhajzq topicals such as hydrocortisone. Follow-up with your primary care provider for reevaluation as discussed. Referrals: Physician,Non-Staff, MD [Primary Care Provider] - 1 week
== END 2024-12-08 18:58 | disposition home or self-care (01) ==
PROVIDERS: Emergency Provider Emergency Medicine
DX: R21 Rash and other nonspecific skin eruption (principal); F17.200 Nicotine dependence, unspecified, uncomplicated
CPT/HCPCS: 99281

== ENCOUNTER 2025-01-05 15:14 | Outpatient (OUT) | payer MEDICARE, MEDICAID, SELFPAY ==
[2025-01-05 15:49] LABS: Hematocrit 42.0 % (42.0-54.0); Hemoglobin 14.3 g/dL (14.0-18.0); Immature Granulocytes Abs Auto 0.01 10^3/uL (0.00-0.03); Immature Granulocytes Pct Auto 0.1 % (0.0-0.5); Lymphocytes Absolute Auto 2.6 10^3/uL (1.2-3.8); Mean Corpuscular HGB Conc 34.0 g/dL (29.9-35.2); Mean Corpuscular Hemoglobin 31.3 pg (25.9-34.0); Mean Corpuscular Volume 91.9 fL (80.0-94.0); Platelet Count 238 10^3/uL (150-450); Red Blood Count 4.57 10^6/uL (4.70-6.10); White Blood Count 6.8 10^3/uL (4.0-11.0)
--- OUTSIDE RECORDS SUMMARY | 2025-01-05 15:53 | XMS_ITS | CCD ---
Author Organization [facility] Inform ion Partnership [facility] Care Team Providers Care Machine Captain Name Role Phone JIMMIE MACKAY Admitting Unavailable JIMMIE MACKAY Attending Unavailable KYLAH BUCHANAN Primary Care Unavailable NONE, [place]X Primary Care Physician Unavailab Arnold Amos Attending Unavailable LEANA MARINO Admitting Unavailable LEANA MARINO Attending Unavailable Sue Khoury Attending Unavailable LEANA MARINO Attending Unavailable Arnold LEIWS Attending Unavailable LEANA MARINO Attending Unavailable LEANA [...] day(s), # 84 tab(s), Refills(s) 0, [id number], 178, cm, 07/15/23 10:42:00 EST, Height/Length [...] day(s), # 28 tab(s), Refills(s) 0, [id number], 178, cm, 07/15/23 10:42:00 EST, Height/Length Dosing, 70, kg, 07/15/23 10:42:00 EST, Weight Dosing Start Date: 07/15/23 Stop Date: 07/29/23 Status: Ordered Start: 05-22-2022 End: 06-05-2022 take 1 tablet by mouth twice daily at mealtime naproxen 500 mg Tab 500 mg = 1 tab(s), Oral, BID, Take with food., X 14 day(s), # 28 tab(s), Refills(s) 0, [id number], 178, cm, 05/22/22 11:36:00 EST, Height/Length Dosing, 70, kg, 05/22/22 11:36:00 EST, Weight Dosing Start Date: 05/22/22 Stop Date: 06/05/22 Status: Ordered sulfamethoxazole 800 mg / trimethoprim 160 mg oral tablet (1 source) Dihydrofolate Reductase Inhibitor Antibacterial, Sulfonamide Antimicrobial Start: 05-22-2022 End: 07-03-2022 Bactrim D.S. 800 mg-160 mg Tab 1 tab(s), Oral, BID for 6 week(s), 84 tab(s), Refill(s) 0, [id number], 178, cm, 05/22/22 11:36:00 EST, Height/Length [...] Interpretation Reference Range Facil ity [place] [facility] [place] [facility] [place] 02, 2023 ELISHA [place] [address] [place] [address] : 1995 Dear Elisha, You missed your scheduled appointment on 11/02/23 at 12:45pm with Dr Sue Khoury MD, with [facility] Carbajal [facility]. Please note our appointment slots [...] a message on your phone. Please call [phone] option 3 to reschedule. Our goal is to provide convenient and quality care to all of our patients. We appreciate your consideration regarding any future cancellations. Sincerely, [facility] Provider Letteron 09-15-2023 Provider Letter September 15, 2023 [place] [address] : 1995 Dear Elisha , We have been trying to reach you with no success. We have a message for you. Please call our office upon receiving this letter. Also, at the time of your call, please provide us with your current information. Thank you for your prompt attention to this matter. Sincerely, [facility] [address], [place] [address] [facility] Chlam/GC/Trich,NAAon 024 C. trachomatis rRNA STEPHANIE+probe Ql (Unsp spec) Negative Invalid Interpretation Code Negative [facility] Comment on above: Performed By: #### 1 [id number] #### [facility] [address] [place] [address] N. gonorrhoeae rRNA STEPHANIE+probe Ql (Unsp spec) Negative Invalid Interpretation Code Negative [facility] Comment on above: Performed By: #### 1 [id number] #### [facility] [address] [place] [address] T. vaginalis rRNA STEPHANIE+probe Ql (Unsp spec) Negative Invalid Interpretation Code Negative [facility] Comment on above: Result Comment: Perf ormed at: =G [facility] [address] BARBARA Lowe [id number] MD Bobby Romo Performed By: #### 1 [id number] #### [facility] [address] [place] [address] Ambulatory Visit Summaryon 0 07-15-2023 Ambulatory Visit [...] LEANA MARINO PA-C, ANA When: Where: [address] [facility] [place] [address] Medications What How Much When Instructions Unchanged [...] you for choosing us for your care. [facility] Patient Educationon 07-15-19 Patient Education Infectious Disease [...] these instructions at home: Medicines ? Take fhsx-bci-oswjdpo and prescription medicines only as told by [...] Where to find more information ? National Summit of Diabetes and Digestive and Kidney Diseases: (more content not included)... Normal [facility] Office/Clinic Noteon 07-15-2023 Urology Office/Clinic [...] bid x 6 weeks. Rx sent to [facility]. -Start Naproxen 500 mg bid x 2 weeks. Take with food. Rx sent to [facility]. -Will send urine for GC-CT testing. call if abnl. Pt knows to call if his sx are not improved after med courses below otherwise f/u PRN. Follow-up With When Contact Information NED LEVINE, LEANA Barnes, URL [address] [place] [address] Additional Instructions: PRN Patient Education Prostatitis Documentation [...] Protein Urine Dipstick: Negative (07/15/23 10:37:00) Specific [place] Urine Dipstick: 1.025 (07/15/23 10:37:00) Urine Appearance Urine Dipstick: Clear (07/15/23 10:37:00) Urine Color Urine Dipstick: Dark yellow (07/15/23 10:37:00) Urobilinogen Urine Dipstick: Normal 0.2-1 EU/dl (07/15/23 10:37:00) pH Urine Dipstick: 6 (07/15/23 10:37:00) Normal [facility] Comment on above: Result Comment: Elec tronically Signed By: LEANA MARINO PA-C\.br\Date and Time Signed: 07/15/23 16:08 EST\.br\Electronically Co-Signed By: Minna Andre\.br\Date and Time Co-Signed: 07/15/23 11:59 EST Chlam/GC/Trich,NAAon 024 C. trachomatis rRNA STEPHANIE+probe Ql (Unsp spec) Negative Invalid Interpretation Code Negative [facility] Comment on above: Performed By: #### 1 [id number] #### [facility] [address] [place] [address] N. gonorrhoeae rRNA STEPHANIE+probe Ql (Unsp spec) Negative Invalid Interpretation Code Negative [facility] Comment on above: Performed By: #### 1 [id number] #### [facility] [address] [place] [address] T. vaginalis rRNA STEPHANIE+probe Ql (Unsp spec) Negative Invalid Interpretation Code Negative [facility] Comment on above: Result Comment: Perf ormed at: =G [facility] [id number] MD Bobby Romo Performed By: #### 1 [id number] #### [facility] [address] [place] [address] Ambulatory Visit Summaryon 0 05-28-2023 Ambulatory Visit Summary ELISHA SANTANA :1995 Visit Date:05/26/2023 Ambulatory Visit Instructions Your Diagnosis BPH with obstruction/lower urinary tract symptoms Tests Performed Urnls Dip Stick Auto w/o Microscopy POC 35027 Your Care Team Attending Physician - LEANA [...] Urnls Dip Stick Auto w/o Microscopy POC 97361 (05/26/2023) Bilirubin Urine Dipstick - Negative Blood Urine Dipstick - Negative Glucose Urine Dipstick - Negative Ketones Urine Dipstick - Negative Leukocytes Urine Dipstick - Negative Nitrite Urine Dipstick - Negative Protein Urine Dipstick - Negative Specific [place] Urine Dipstick - 1.020 Urine Appearance Urine [...] for choosing us for your care. Normal [facility] Vital Signs Date Time Vital Sign Value Performing Clinician Lala carreon 05-22-2022 11:34-0500 Blood Pressure Location LEANA MARINO [facility] 05-22-2022 11:34-0500 Diastolic blood pressure 73 mm[Hg] LEANA MARINO [facility] 05-22-2022 11:34-0500 Heart rate 57 /min LEANA MARINO [facility] 05-22-2022 11:34-0500 Systolic blood pressure 127 mm[Hg] LEANA MARINO [facility] Encounters Encounter Date Encounter Type Care Provider Facility Start: 03-02-2024 End: 03-02-2024 ambulatory Arnoldsaul LEWIS Facility:[facility] Start: 03-02-2024 End: 03-02-2024 Patient encounter procedure Arnold LEWIS [facility] Start: 11-02-2023 End: 11-02-2023 ambulatory Sue Khoury Facility: [facility] Start: 11-02-2023 End: 11-02-2023 Patient encounter procedure Sue ReeseForrest Peng [facility] Start: 10-16-2023 End: 10-16-2023 ambulatory Arnoldsaul LEWIS Facility: [place] Start: 10-16-2023 End: 10-16-2023 Patient encounter procedure Arnold LEWIS [facility] [place] Start: 07-15-2023 End: 07-15-2023 ambulatory LEANA Barnes NED [facility] Start: 07-15-2023 End: 07-15-2023 Lab Drop off LEANA Valentino NED [facility] Start: 07-15-2023 End: 07-15-2023 ambulatory LEANA E NED Facility:[facility] Start: 07-15-2023 End: 07-15-2023 Patient encounter procedure LEANA E NED [facility] Start: 05-26-2023 End: 05-26-2023 ambulatory LEANA E NED Facility[facility] Start: 05-22-2022 End: 05-22-2022 Patient encounter procedure LEANA E NED [facility] Start: 09-25-2021 End: 09-25-2021 Patient encounter procedure LEANA MARINO [facility] Start: 02-17-2021 ambulatory JIMMIEJAYY [place] Chiang y:H1 Payers Date Payer Category Payer Medicare [id number] 2020 Medicaid [id number] 1995 Unknown [id number] 2.16.84 [id number] 1995 Unknown [id number] 2.16.8 [id number] 1995 Unknown [id number] 2.16.8 [id number] 1995 Unknown [id number] 2.16.8 [id number] 1995 Unknown [id number] 2.16.8 [id number] 1995 Unknown [id number] 2.16.8 [id number] 1995 Unknown [id number] 2.16.8 [id number] 1995 Unknown [id number] 2.16.8 [id number] 1961 Self-pay Social History Date Type Detail Facility Start: 07-31-2021 End: 07-15-2023 Tobacco smoking status Heavy tobacco smoker (finding) [facility] Sex Assigned At Male [facility] Tobacco smoking status Smoker (finding) [facility] Tobacco smoking status Never [facility] Medical Equipment Procedure Code Equipment Code Equipment Origin al Text Equipment Identifier Dates film, SubLingual , Daily, Refill(s) 0 Start: 07-31-2021 Functional Status Date Assessment Result Facility 07-15-2023 Functional Status N/A [facility] 05-22-2022 Functional Status N/A [facility] Hospital Discharge instructions 10-16-2023 Note Date & Type Note Facility 10-16-2023 Hospital Discharg e instructions Follow Up Care 10/16/2023 11:21:46 With:Peng PEREZ, ANA Damico, U[facility] Address: When: Unknown [facility] Hospital Discharge instructions 10-07-2023 Note Date & Type Note Facility 10-07-2023 Hospital Discharg e instructions Follow Up Care 10/07/2023 10:21:41 With:JOSHUA PEREZ, Arnold Thurston, URL Address: [facility] [address], [place] [phone] When: Unknown [facility] Evaluation + Plan note 07-15-2023 Laboratory Note Date & Type Note Facility 07-15-2023 Evaluation + Plan note Diagnostic Tests PendingChlam/GC/Trich,STEPHANIE 07/15/23 Future Scheduled TestsChlamydia trachomatis, STEPHANIE 07/31/22Neisseria gonorrhoeae, STEPHANIE 07/31/22 [facility] Hospital Discharge instructions 07-15-2023 Note Date [...] Follow these instructions at home: Medicines Take wyhy-lst-mjzhera and prescription medicines only as told by [...] important. Where to find more information National Summit of Diabetes and Digestive and Kidney Diseases: [...] depends on the type of prostatitis. Take lkws-qfp-mcvsxlw and prescription medicines only as told by [...] provider. Document Revised: 06/15/2020 Document Reviewed: 06/15/2020 [employer] Patient Education 2022 [employer]. Follow Up Care 07/02/2023 11:55:36 With:NED LEVINE, LEANA Barnes, URL Address: [address] [place] [address] When: Unknown [facility] Evaluation + Plan note 07-31-2022 Laboratory Note Date & Type Note Facility 07-31-2022 Evaluation + Plan note Future Scheduled TestsChlamydia trachomatis, STEPHANIE 07/31/22Neisseria gonorrhoeae, STEPHANIE 07/31/22 [facility] Hospital Discharge instructions 05-22-2022 Note Date & [...] prostate. Follow these instructions at home: Take hgco-roh-niiwkdk and prescription medicines only as told by [...] 05/08/2001 Document Revised: 07/24/2018 Document Reviewed: 01/29/2017 [employer] Patient Education 2020 [employer]. Follow Up Care 05/14/2022 10:03:28 With:LEANA MARINO PA-C, URL Address: [address] [place] [address] [place] [address] When: only if needed Comments:PRN [facility] Evaluation + Plan note Note Date & Type Note Facility Evaluation + Plan note No data available for this section [facility] Evaluation + Plan note Note Date & Type Note Facility Evaluation + Plan note Future Appointments Appointment Date:11/02/2023 12:45:00 PM Scheduled Provider:Peng PEREZ, Sue Hunt Location:[facility] Appointment Type:URO Office Visit [facility] Hospital Discharge instructions Note Date & Type Note Facility Hospital Discharge instructions No data available for this section [facility] Progress note Note Date & Type Note Facility Progress note No data available for this section [facility] Summary Purpose Family History No Family [...] and content) DATE CREATED AUTHOR 11/12/2021 [facility] DATE CREATED AUTHOR AUTHOR'S ORGANIZ ATION 03/04/2024 [facility] FOR RECORDS PERTAINING TO PATIENTS WHO ARE [...] BE BASED ON THE PRIMARY CLINICAL RECORDS. [facility] [employer] [facility]. provides no warranty or guarantee of the accuracy or completeness of information in this document.
[2025-01-05 15:57] LABS: INR 1.19; Partial Thromboplastin Time 28.2 sec (22.3-36.2); Prothrombin Time 12.4 sec (9.0-11.6)
[2025-01-05 16:07] LABS: Alanine Aminotransferase 26 U/L (16-63); Alkaline Phosphatase 85 U/L (46-116); Aspartate Amino Transferase 16 U/L (15-37)
== END 2025-01-05 15:15 | disposition home or self-care (01) ==
PROVIDERS: Visit Provider Nurse Practitioner Family
DX: B18.2 Chronic viral hepatitis C (principal); Z11.59 Encounter for screening for other viral diseases
CPT/HCPCS: 36415; 84075; 84450; 84460; 85025; 85610; 85730; 86704; 86706; 87340; 87522